=== PATIENT | male | born 1975 | race Caucasian/White ===

== ENCOUNTER 2020-11-26 06:15 | Day surgery (SDC) | payer BC ==
--- NOTE | 2020-11-12 12:41 | PCM.PRNOTE ---
#1 Interpretation EKG Date: 11/12/20 Time: 11:14 Rhythm: Other (sinus bradycardia) Rate (Beats/Min): 46 [place]: Normal P-Wave: Present QRS: Normal ST-T: Normal QT: Normal EKG Interpretation Comments: [facility]
[~2020-11-26 06:15] MED LIST: Dexmedetomidine 200 MCG/2 ML SDV ONE; Ropivacaine 0.5% 5 MG/ML 30 ML SDV ONE
[2020-11-26] MEDS: Lactated Ringers 1,000 ML IV SCH ×2 (06:30→14:00)
[2020-11-26] MEDS ORDERED: Lidocaine 1%/Sod Bicarbonate in NS 8.4% 1 ML Syringe IDERM PRN (07:00)
[2020-11-26] MEDS ORDERED: Sodium Chloride 0.9% 10 ML Syringe FLUSH PRN (07:00)
[2020-11-26] MEDS ORDERED: EPINEPHrine 1 MG/ML 30 ML MDV IRR SCH (07:00)
--- NOTE | 2020-11-26 07:20 | PCM.PREANE ---
Preanesthetic Assessment - Procedure Proposed Procedure: Left Shoulder Video Arthroscopy, Rotator Cuff Repair Subacromial Decompression - Anesthesia/Transfusion/Family Hx Anesthesia History: Prior Anesthesia Without Reaction Family History of Anesthesia Reaction: No - Review of Systems General: No Symptoms Pulmonary: No Symptoms Cardiovascular: No Symptoms, Other (> 4 MET capacity) Gastrointestinal: No Symptoms Neurological: Numbness (Paresthesia to left hand ) Other: Reports: None - Physical Assessment NPO Status Date: 11/25/20 NPO Status Time: 20:30 Vital Signs: Last Vital Signs Temp 36.2 C 11/26/20 06:25 Pulse 61 11/26/20 06:25 Resp 16 11/26/20 06:25 BP 124/81 11/26/20 06:25 Pulse Ox 96 11/26/20 06:25 Height: 1.7 m Weight: 73.028 kg ASA Class: 1 Mental Status: Alert & Oriented x3 Airway Class: Mallampati = 1 Dentition: Reports: Caries Thyro-Mental Finger Breadths: 3 Mouth Opening Finger Breadths: 3 ROM/Head Extension: Full Lungs: Clear to Auscultation, Normal Respiratory Effort Cardiovascular: Regular Rate, Regular Rhythm - Lab Values: Laboratory Last Values MRSA (PCR) Negative 11/18/20 09:42 - Allergies Allergies/Adverse Reactions: Allergies Allergy/AdvReac Type Severity Reaction Status Date / Time morphine AdvReac Unknown Nausea and Verified 11/26/20 06:43 Vomiting - Anesthesia Plan Pre-Op Medication Ordered: Anxiolytic - Acknowledgements Anesthesia Type Planned: Regional Block (Preoperative Interscalene nerve block for post operative pain control requested by Dr. Kelsey) Pt an Appropriate Candidate for the Planned Anesthesia: Yes Alternatives and Risks of Anesthesia Discussed w Pt/Guardian: Yes Pt/Guardian Understands and Agrees with Anesthesia Plan: Yes PreAnesthesia Questionnaire HEENT History: Reports: None Cardiovascular History: Reports: None Respiratory History: Reports: None Gastrointestinal History: Reports: None Genitourinary History: Reports: None CAT SCANNER OPERATOR History: Reports: None Musculoskeletal History: Reports: None Neurological History: Reports: Other (See Below) Other Neuro History: paresthesia Psychiatric History: Reports: None Endocrine/Metabolic History: Reports: None Hematologic History: Reports: None Immunologic History: Reports: None Oncologic (Cancer) History: Reports: None Dermatologic History: Reports: None - Infectious Disease History Infectious Disease History: Reports: None - Past Surgical History HEENT Surgical History: Reports: None Cardiovascular Surgical History: Reports: None Respiratory Surgical History: Reports: None GI Surgical History: Reports: Appendectomy Female Surgical History: Reports: None Male Surgical History: Reports: None Endocrine Surgical History: Reports: None Neurological Surgical History: Reports: None Musculoskeletal Surgical History: Reports: Arthroscopic Knee, Shoulder Surgery Oncologic Surgical History: Reports: None Dermatological Surgical History: Reports: None - SUBSTANCE USE Tobacco Use Status *Q: Never Tobacco User Recreational Drug Use History: No - HOME MEDS Home Medications: Home Meds Acetaminophen/HYDROcodone [[place] 325-5 MG] 1 - 2 tab PO Q6H PRN #30 tablet 11/26/20 [Rx] Cyclobenzaprine [Flexeril] 10 mg PO BID PRN #20 tab 11/26/20 [Rx] - CURRENT (IN HOUSE) MEDS Current Meds: Current Medications Lactated Ringer's (Ringers, Lactated) 1,000 mls @ 125 mls/hr IV ASDIRECTED KYLE Stop: 11/26/20 23:00 Lidocaine/Sodium Bicarbonate (Lidocaine 1%/Sod Bicarbonate In Ns 8.4% 1 Ml Syringe) 0.25 ml IDERM ONETIME PRN PRN Reason: Prior to IV Start Stop: 11/26/20 18:00 Sodium Chloride (Sodium Chloride 0.9% 10 Ml Syringe) 10 ml FLUSH ASDIRECTED PRN PRN Reason: Keep Vein Open Stop: 11/26/20 18:00
[2020-11-26] MEDS ORDERED: fentaNYL 100 MCG/2 ML SDV ONE (07:26)
[2020-11-26] MEDS ORDERED: Midazolam 1 MG/ML 2 ML SDV ONE (07:27)
[2020-11-26] MEDS ORDERED: Propofol 200 MG/20 ML SDV ONE ×2 (07:27→09:48)
[2020-11-26] MEDS ORDERED: Dexamethasone 4 MG/ML 5 ML MDV ONE (08:02)
[2020-11-26] MEDS ORDERED: Lidocaine 1% 4 ML ONE (08:31)
[2020-11-26] MEDS ORDERED: ceFAZolin 1 GM Vial ONE (08:36)
--- NOTE | 2020-11-26 08:47 | PCM.PRNOTE ---
- Free Text/Narrative Note: Postoperative regional pain control requested by surgeon. Pre-op Dx: Left Rotator cuff tear Surgical procedure: Left Rotator cuff repair with subacromial decompression Procedure: Lt Interscalene block with U/S guidance Requesting physician: Dr. Dennis Dominguez Risks and benefits discussed with the patient preoperatively including infection, bleeding, incomplete or failed block, possible nerve damage, local anesthetic toxicity. Chart reviewed, VS stable. Permit signed. Patient in preoperative room, stable , alert and awake. Time out performed at 07:43. Oxygen 3L via NC. Left side of the neck was prepped with Chloraprep x 1 and allowed to dry. Midazolam IV 2 mg given. Under aseptic technique, the brachial plexus was identified under ultrasound prior to needle insertion. Local infiltration with 2mls of 1% Lidocaine. 2" Stimuplex needle #22 G was inserted under US guidance. Neuromuscular response of biceps contraction and forearm twitching elicited at 0.6 mA. Under direct visualization of needle tip the injection of 0.5% Ropivacaine (16 mls) and 2% PF Lidocaine (7 mls) with 1:200k epinephrine, with 8 mg of Dexamethasone and 40 mcg of Dexmedetomidine, total of 25 mls in divided doses, maintaining negative aspiration was completed without problems. No local anesthetic toxicity was noted. Patient is awake, stable and tolerated the procedure well. Please see the attached U/S images Time: 07:43 - 07:51
--- NOTE | 2020-11-26 11:42 | PCM48HPAN ---
Post Anesthesia Note - EVALUATION WITHIN 48HRS OF ANESTHETIC Vital Signs in Normal Range: Yes Patient Participated in Evaluation: Yes Respiratory Function Stable: Yes Airway Patent: Yes Cardiovascular Function Stable: Yes Hydration Status Stable: Yes Pain Control Satisfactory: Yes Nausea and Vomiting Control Satisfactory: Yes Mental Status Recovered: Yes Vital Signs: Last Vital Signs Temp 97.1 F 11/26/20 10:06 Pulse 56 L 11/26/20 11:30 Resp 16 11/26/20 11:30 BP 109/67 11/26/20 11:30 Pulse Ox 92 L 11/26/20 11:30 - COMMENTS/OBSERVATIONS Free Text/Narrative:: preparing for home discharge
--- NOTE | 2020-11-26 12:25 | PCM48HPAN ---
Post Anesthesia Note - EVALUATION WITHIN 48HRS OF ANESTHETIC Vital Signs in Normal Range: Yes Patient Participated in Evaluation: Yes Respiratory Function Stable: Yes Airway Patent: Yes Cardiovascular Function Stable: Yes Hydration Status Stable: Yes Pain Control Satisfactory: Yes Nausea and Vomiting Control Satisfactory: Yes Mental Status Recovered: Yes Vital Signs: Last Vital Signs Temp 36.2 C 11/26/20 10:06 Pulse 56 L 11/26/20 11:30 Resp 16 11/26/20 11:30 BP 109/67 11/26/20 11:30 Pulse Ox 92 L 11/26/20 11:30
--- NOTE | 2020-11-26 16:50 | PCM.OPNOTE ---
- General Post-Op/Procedure Note Date of Surgery/Procedure: 11/26/20 Operative Procedure(s): left shoulder video arthroscopy with extensive debridmeent, small rotator cuff repair, biceps tenotomy, SLAP repair, and subacromial decompression Pre Op Diagnosis: left shoulder rotator cuff tear with impingement Post-Op Diagnosis: same with SLAP tear and biceps tenindopathy Anesthesia Technique: MAC, Regional Block Primary Surgeon: Dennis Kelsey Anesthesia Provider: Moris Tobin Flower Shop Laborer/Designer: Monica Cooney EBL in mLs: 5 Complications: None Condition: Good Free Text/Narrative:: Intake & Output 11/26/20 11/26/20 11/26/20 06:59 14:59 22:59 Intake Total 2350 Balance 2350
--- NOTE | 2020-11-26 17:48 | OR ---
DATE OF OPERATION: 11/26/2020 SURGEON: Dennis Kelsey MD OPERATION PERFORMED: Left shoulder video arthroscopy with extensive debridement, small rotator cuff repair, biceps tenotomy, superior labrum anterior and posterior repair, and subacromial decompression. PREOPERATIVE DIAGNOSIS: Left shoulder rotator cuff tear with impingement. POSTOPERATIVE DIAGNOSIS: Left shoulder rotator cuff tear with impingement with superior labrum anterior and posterior tear and biceps tendinopathy. ANESTHESIA: MAC with regional block. ANESTHESIA: Tayler Aragon. CHIEF ACCOUNTING OFFICER: Monica Cooney PA-C. ESTIMATED BLOOD LOSS: Less than 5 mL. COMPLICATIONS: None. CONDITION: Stable. DESCRIPTION OF PROCEDURE: The patient was identified in the preoperative holding area. Proper site was marked, identified by surgeon. The patient was taken back to the operative theater where after adequate anesthesia, the patient was placed in lazy right lateral decubitus position. Wedge was placed posteriorly. Left upper extremity was then sterilely prepped and draped in the usual sterile fashion. OR time-out was performed. The patient received 2 g IV Ancef. 12 pounds of traction was applied to the left upper extremity. Standard posterior incision was made. Scope trocar was introduced into the glenohumeral joint. With the use of a spinal needle, an anterior portal was created from an outside-in technique. The patient was noted to have significant fraying of his biceps to the point where a tenodesis was not going to be able to be performed, so a tenotomy was performed at this time. The patient was noted to have type 2 SLAP tear, the posterior portion of which was scarred in and was stable. The anterior portion did have a loose rim. A rasp as well as a resector was used to get a good bony bleeding bed on the anterior portion of the superior glenoid. A FiberWire was then passed and the Arthrex 2.9 mm PushLock anchor was placed in the anterior superior labrum and was found to have good repair with no instability at the anterior portion of the superior labrum. The patient was noted to have no signs of chondromalacia. He was noted to have almost complete full-thickness tear of the anterior portion of the supraspinatus. Subscapularis tendon was intact. At this time, attention was turned to the subacromial bursa. The patient was noted to have a large amount of bursitis and then extensive debridement was done of the subacromial space at this time. The patient was also noted to have a type 2 acromion. A 4.0 full-radius cris was then used for subacromial decompression and acromioplasty back to a smooth border with posterior rim. The patient was noted to have a small rotator cuff tear of the anterior supraspinatus, a good bony bleeding bed, as well as nonviable fibers that were resected. Once this was completed, Arthrex Medial-Row All-Suture anchor was placed. Six limbs of suture were then placed from anterior to posterior. These were all brought out laterally and a lateral row Fanta anchor was placed. Tension was applied across the repair site and an interference screw was placed. The patient was noted to have adequate watertight repair of the rotator cuff. At this time, excess saline was drained from the shoulder. 3-0 nylon suture was used for closure of the skin. The patient was placed in a sterile soft dressing and a pillow sling and sent to the PACU in stable condition. MMODAL /[id number]
== END 2020-11-26 14:50 | disposition home or self-care (01) ==
LOC: JD.SDS 06:15
PROVIDERS: ATTEND Orthopaedic Surgery
DX: M75.102 Unspecified rotator cuff tear or rupture of left shoulder, not specified as traumatic (principal); M25.812 Other specified joint disorders, left shoulder; S43.432A Superior glenoid labrum lesion of left shoulder, initial encounter; M75.22 Bicipital tendinitis, left shoulder; M75.52 Bursitis of left shoulder; Z88.5 Allergy status to narcotic agent; Z98.890 Other specified postprocedural states
CPT/HCPCS: 29807; 29823; 29826; 29827; 87641; C1713; J0171; J0690; J1100; J2250; J2704; J2795; J3010; J7120; 01630; 64415; 76942

== ENCOUNTER 2022-04-29 18:38 | Emergency (ER) | payer BC | END 2022-04-29 20:35 | disposition home or self-care (01) | LOC: JD.ED 18:38 | DX: S62.394A Other fracture of fourth metacarpal bone, right hand, initial encounter for closed fracture (principal); Z88.5 Allergy status to narcotic agent; W22.09XA Striking against other stationary object, initial encounter | CPT/HCPCS: 29125; 73130-26-RT; 73130-RT; 99283-25 ==

== ENCOUNTER 2022-12-16 07:00 | Day surgery (SDC) | payer BC ==
[~2022-12-16 07:00] MED LIST changes: -Dexmedetomidine 200 MCG/2 ML SDV ONE; +EPINEPHrine 1 MG/ML 30 ML MDV IRR SCH; +Lactated Ringers 1,000 ML IV SCH; +Lidocaine 1%/Sod Bicarbonate in NS 8.4% 1 ML Syringe IDERM PRN; -Ropivacaine 0.5% 5 MG/ML 30 ML SDV ONE; +Sodium Chloride 0.9% 10 ML Syringe FLUSH PRN; +Sodium Chloride 0.9% 10 ML Syringe FLUSH SCH
[2022-12-16] MEDS ORDERED: Bupivacaine 0.25% 10 ML SDV ONE (07:23)
[2022-12-16] MEDS ORDERED: fentaNYL 100 MCG/2 ML SDV ONE (07:54)
[2022-12-16] MEDS ORDERED: Propofol 200 MG/20 ML SDV ONE (07:54)
[2022-12-16] MEDS ORDERED: Midazolam 1 MG/ML 2 ML SDV ONE (07:55)
[2022-12-16] MEDS ORDERED: Lidocaine 1% 4 ML ONE (07:57)
[2022-12-16] MEDS ORDERED: ceFAZolin 2 GM Vial ONE (08:27)
[2022-12-16] MEDS ORDERED: Lactated Ringers 500 ML ONE (08:27)
[2022-12-16] MEDS ORDERED: Dexamethasone 4 MG/ML 5 ML MDV ONE (09:05)
[2022-12-16] MEDS ORDERED: fentaNYL 100 MCG/2 ML SDV IVPUSH PRN (09:17)
[2022-12-16] MEDS ORDERED: HYDROmorphone 0.5 MG/0.5 ML Syringe IVPUSH PRN (09:17)
[2022-12-16] MEDS ORDERED: Ondansetron 4 MG/2 ML SDV IVPUSH PRN (09:17)
[2022-12-16] MEDS ORDERED: Ketorolac 15 MG/ML SDV IVPUSH SCH (09:30)
== END 2022-12-16 11:05 | disposition home or self-care (01) ==
LOC: JD.SDS 07:00
PROVIDERS: ATTEND Orthopaedic Surgery
DX: S83.281A Other tear of lateral meniscus, current injury, right knee, initial encounter (principal); S83.241A Other tear of medial meniscus, current injury, right knee, initial encounter; M22.41 Chondromalacia patellae, right knee; Z88.6 Allergy status to analgesic agent; Z98.890 Other specified postprocedural states; Z79.899 Other long term (current) drug therapy; Z79.82 Long term (current) use of aspirin
CPT/HCPCS: 29880; J0171; J0690; J1100; J1885; J2250; J2704; J3010; J3490; J7120; 01400